=== PATIENT | female | born 1935 | race Caucasian/White ===

== ENCOUNTER 2024-05-09 19:46 | Observation (INO) ==
[2024-05-09] MEDS ORDERED: fentaNYL 100 mcg/2 ml 50 MCG/ML VIAL ONE (20:39)
[2024-05-09] MEDS: Lactated Ringers 1000 ml BAG 1,000 ML IV ONE (20:44)
[2024-05-09] MEDS: Ondansetron 4 mg VIAL 2 MG/ML 2 ml VIAL IV ONE (20:44)
[2024-05-09] MEDS ORDERED: Succinylcholine 200 mg VIAL 20 mg/ml 10 ml VIAL (200 mg) ONE (20:45)
[2024-05-09] MEDS ORDERED: Lidocaine 2% PF 5 ML VIAL ONE (20:45)
[2024-05-09] MEDS ORDERED: Propofol 10 MG/ML 20 ML BTL ONE (20:45)
[2024-05-09] MEDS ORDERED: Phenylephrine 40 mcg/mL 10mL (400mcg) SYRINGE ONE (20:45)
[2024-05-09 21:00] LABS: ABS Basophils 0.1 10^3/uL (0.0-0.1); ABS Lymphocytes 0.8 10^3/uL (1.0-4.8); ABS Monocytes 0.7 10^3/uL (0.0-0.9); ABS Neutrophils 7.8 10^3/uL (1.5-7.6); Eosinophil % 0.5 %; Hematocrit 33.8 % (35-45); Hemoglobin 10.9 g/dL (11.5-14.3); Lymphocyte % 8.9 %; Mean Corpuscular Hgb Conc 32.2 g/dL (31-36); Mean Corpuscular Volume 90.3 fL (80-97); Mean Platelet Volume 7.5 fL (7.5-11.2); Platelet Count 221 10^3/uL (150-450); Red Blood Count 3.75 10^6/uL (3.63-4.92); Red Cell Distribution Width 15.4 % (12-17); White Blood Count 9.5 10^3/uL (3.8-11.8)
[2024-05-09] MEDS ORDERED: Dexamethasone IV 4 MG/ML VIAL 1 ml VIAL ONE (21:52)
[2024-05-09] MEDS ORDERED: Ondansetron 4 mg VIAL 2 MG/ML 2 ml VIAL ONE (21:52)
[2024-05-09 22:05] LABS: Albumin 4.2 g/dL (3.2-5.2); Albumin/Globulin Ratio 1.4 (1-3); Calcium 9.6 mg/dL (8.6-10.3); Potassium 4.9 mmol/L (3.5-5.0); Total Bilirubin 0.6 mg/dL (0.2-1.0); Total Protein 7.2 g/dL (6.4-8.9); eGFR CKD-EPI 54.2 (>60)
[2024-05-09] MEDS ORDERED: Naloxone 0.4 mg VIAL 0.4 mg/ml 1 ml VIAL IV PRN (22:45)
[2024-05-09] MEDS ORDERED: fentaNYL 100 mcg/2 ml 50 MCG/ML VIAL IV PRN (22:45)
[2024-05-09] MEDS ORDERED: Metoclopramide 5 MG/ML VIAL (10 mg) IV PRN (22:45)
[2024-05-09] MEDS ORDERED: Ondansetron 4 mg VIAL 2 MG/ML 2 ml VIAL IV PRN (22:45)
[2024-05-09] MEDS ORDERED: NS 0.45% 1000 ml BAG 1,000 ML IV SCH (23:00)
[2024-05-10] MEDS ORDERED: Dextrose 50% Syringe 50 ml 25 GM/50 ML SYRINGE IV PUSH PRN (01:23)
[2024-05-10] MEDS: Acetaminophen IV 1 GM/100ML 1,000 MG/100 ML BAG IV ONE (01:48)
[2024-05-10] MEDS: Buffered Lidocaine 1% SYRIN 1 ml INTRADERM ONE (01:49)
[2024-05-10] MEDS: Ondansetron 4 mg VIAL 2 MG/ML 2 ml VIAL IV ONE (01:49)
[2024-05-10] MEDS: Lactated Ringers 1000 ml BAG 1,000 ML IV SCH (01:49)
[2024-05-10 09:49] VITALS: BP 121/59
== END 2024-05-10 13:30 | disposition home or self-care (01) ==
LOC: EDHOLD 19:46 → ED 19:46 → SSU 19:50 → SUATTDRO 23:59 → SSU 05-10 00:17
PROVIDERS: ADMIT Internal Medicine; ATTEND Internal Medicine

== ENCOUNTER 2024-08-29 16:14 | Observation (INO) ==
[2024-08-29 17:00] LABS: ABS Eosinophils 0.1 10^3/uL (0.0-0.5); ABS Lymphocytes 0.7 10^3/uL (1.0-4.8); ABS Monocytes 0.5 10^3/uL (0.0-0.9); ABS Neutrophils 7.4 10^3/uL (1.5-7.6); Eosinophil % 0.6 %; Hematocrit 32.8 % (35-45); Hemoglobin 10.6 g/dL (11.5-14.3); Lymphocyte % 8.5 %; Mean Corpuscular Hgb Conc 32.4 g/dL (31-36); Mean Corpuscular Volume 92.5 fL (80-97); Mean Platelet Volume 7.2 fL (7.5-11.2); Platelet Count 279 10^3/uL (150-450); Red Blood Count 3.54 10^6/uL (3.63-4.92); Red Cell Distribution Width 16.5 % (12-17); White Blood Count 8.7 10^3/uL (3.8-11.8)
[2024-08-29] MEDS: Ondansetron 4 mg VIAL 2 MG/ML 2 ml VIAL IV ONE (17:02)
[2024-08-29 17:35] LABS: Albumin 4.2 g/dL (3.2-5.2); Albumin/Globulin Ratio 1.5 (1-3); Calcium 9.2 mg/dL (8.6-10.3); Creatinine, Serum 0.86 mg/dL (0.51-0.95); Globulin 2.8 g/dL (2-4); Magnesium 1.6 mg/dL (1.9-2.7); Potassium 5.2 mmol/L (3.5-5.0); Total Bilirubin 0.5 mg/dL (0.2-1.0); eGFR CKD-EPI 64.5 (>60)
[2024-08-29] MEDS: Morphine 4 MG/ML VIAL (1 ml) IV ONE (19:56)
[2024-08-29] MEDS ORDERED: Albuterol 2.5mg/3 ml (0.083%) NEB.SOLN INH PRN (21:43)
[2024-08-29] MEDS ORDERED: fentaNYL 100 mcg/2 ml 50 MCG/ML VIAL ONE (21:45)
[2024-08-29] MEDS ORDERED: Albuterol 2.5mg/3 ml (0.083%) NEB.SOLN INH ONE (21:51)
[2024-08-29] MEDS ORDERED: Rocuronium 50 mg VIAL 10 mg/ml 5 ml VIAL (50 mg) ONE (22:05)
[2024-08-29] MEDS ORDERED: Propofol 10 MG/ML 20 ML BTL ONE (22:23)
[2024-08-30] MEDS: Magnesium Sulfate 2 gm BAG 2 GM/50 ML BAG IVPB ONE (03:03)
[2024-08-30 05:50] LABS: ABS Basophils 0.1 10^3/uL (0.0-0.1); ABS Eosinophils 0.1 10^3/uL (0.0-0.5); ABS Lymphocytes 0.7 10^3/uL (1.0-4.8); ABS Monocytes 0.4 10^3/uL (0.0-0.9); ABS Neutrophils 6.1 10^3/uL (1.5-7.6); Eosinophil % 1.4 %; Hematocrit 31.8 % (35-45); Hemoglobin 10.3 g/dL (11.5-14.3); Lymphocyte % 9.1 %; Mean Corpuscular Hemoglobin 30.2 pg (27-33); Mean Corpuscular Hgb Conc 32.3 g/dL (31-36); Mean Corpuscular Volume 93.4 fL (80-97); Mean Platelet Volume 7.4 fL (7.5-11.2); Platelet Count 253 10^3/uL (150-450); Red Cell Distribution Width 16.3 % (12-17); White Blood Count 7.4 10^3/uL (3.8-11.8)
[2024-08-30 06:09] LABS: Calcium 8.7 mg/dL (8.6-10.3); Creatinine, Serum 0.66 mg/dL (0.51-0.95); eGFR CKD-EPI 83.8 (>60)
[2024-08-30] MEDS: Enoxaparin 40 MG/0.4 ML SYR SUBCUT SCH (06:47)
[2024-08-30] MEDS: Albuterol 2.5mg/3 ml (0.083%) NEB.SOLN INH ONE (07:46)
[2024-08-30] MEDS: PTO: Dorzolamide/Timolol OPTH (NF) 10 ML BOT LEFT EYE SCH (09:57)
[2024-08-30] MEDS: PTO: Brimonidine P 0.15%(NF) OPH SOL 5 ML BTL LEFT EYE SCH (09:57)
[2024-08-30 09:58] VITALS: BP 134/89
[2024-08-30] MEDS: Amoxicillin/Clavul 875/125 TAB (Augmentin 875 tab) PO SCH (11:12)
[2024-08-30] MEDS: OPTH RIGHT EYE SCH (11:13)
[2024-08-30] MEDS: SODIUM CHLORIDE 5% RIGHT EYE SCH (11:13)
[2024-08-30] MEDS: Pneumococcal 20-Valent Conj 0.5 ML SYR Vaccine IM ONE (11:14)
[2024-08-31 18:07] LABS: Scl 70 Ab, IgG, S <0.2 U
== END 2024-08-30 15:00 | disposition home or self-care (01) ==
LOC: ED 16:14 → SSU 20:21 → OR 20:21 → SSU 08-30 00:16
PROVIDERS: ADMIT Internal Medicine; ATTEND Hospitalist
PROC: O.GIEGD (2024-08-29 21:00)